=== PATIENT | female | born 1980 | race Caucasian/White ===

== ENCOUNTER 2017-08-21 08:14 | Emergency (ER) | payer OTHER ==
[2017-08-21 10:07] VITALS: BP 116/74
--- NOTE | 2017-08-21 10:16 | UC ---
Skin Complaint HPI - HPI Summary HPI Summary: Pt c/o "sores" on left upper arm/shoulder, upper back and neck, and chin. Also , c/o tender lymphandenopathy left side neck and supraclavicular - History of Current Complaint Chief Complaint: UCSkin Time Seen by Provider: 08/21/17 10:07 Stated Complaint: IMPEDIGO/RASH Hx Obtained From: Patient Hx Last Menstrual Period: DOES NOT HAVE REG PERIODS, HAS THE IMPLAMON ?: No Onset/Duration: Gradual Onset, Lasting Days, Still Present Skin Exposure Onset/Duration: Days Ago Timing: Constant Onset Severity: Mild Current Severity: Mild Character: Redness, Raised, Painful Aggravating Factor(s): Touch Alleviating Factor(s): Unknown Associated Signs & Symptoms: Positive: Tenderness - Allergy/Home Medications Allergies/Adverse Reactions: Allergies Allergy/AdvReac Type Severity Reaction Status Date / Time Penicillin V Allergy Intermediate Hives Verified 08/21/17 08:20 [From Penicillin VK Potassium] Review of Systems Constitutional: Negative Skin: Other - sores, Eyes: Negative ENT: Negative Respiratory: Negative Cardiovascular: Negative Gastrointestinal: Negative Genitourinary: Negative Motor: Negative Neurovascular: Negative Musculoskeletal: Negative Neurological: Negative Psychological: Negative Is Patient Immunocompromised?: No All Other Systems Reviewed And Are Negative: Yes PMH/Surg Hx/FS Hx/Imm Hx Previously Healthy: Yes - Surgical History Surgical History: Yes Surgery Procedure, Year, and Place: bilat knee surgery. pylonital cyst removal, wisdom teeth extracted. - Family History Known Family History: Positive: Cardiac Disease - Social History Occupation: Employed Full-time Lives: With Family Alcohol Use: Occasionally Substance Use Type: None Smoking Status (MU): Heavy Every Day Tobacco Smoker Type: Cigarettes Amount Used/How Often: 1 ppd Have You Smoked in the Last Year: Yes Household Exposure Type: Cigarettes Physical Exam Triage Information Reviewed: Yes Appearance: Well-Appearing Vital Signs: Initial Vital Signs Temp 98.9 F 08/21/17 08:20 Pulse 77 08/21/17 08:20 Resp 20 08/21/17 08:20 BP 120/73 08/21/17 08:20 Pulse Ox 100 08/21/17 08:20 Vital Signs Reviewed: Yes Eye Exam: Normal ENT Exam: Normal Dental Exam: Normal Neck: Positive: Tenderness @ - left supraclavicular, left cervical chain, Enlarged Nodes @ Respiratory Exam: Normal Cardiovascular Exam: Normal Abdominal Exam: Normal Musculoskeletal Exam: Normal Neurological Exam: Normal Psychological Exam: Normal Skin Exam: Other - small eraser size sores on chin, left upper shoulder/arm, upper back and left side of neck. Course/Dx - Course Course Of Treatment: I discussed wiht the patient the need to follow p with her PCP regarding the lymphadenopathy in 1 week. Pt verbalized understanding and agreed to plan of care. - Differential Diagnoses - Skin Complaint Differential Diagnoses: Cellulitis, Impetigo, MRSA - Diagnoses Provider Diagnoses: cellulitis. MRSA? Lymphadenopathy Discharge - Discharge Plan Condition: Stable Disposition: HOME Prescriptions: Mupirocin 2% OINT* [Bactroban 2 % Oint*] 1 applic TOPICAL Q12H #1 tube Sulfamethox/Trimethoprim DS* [Bactrim DS 800/160 TAB*] 1 tab PO Q12H #10 tab Patient Education Materials: Cellulitis (ED), Lymphadenopathy (ED) Referrals: Cynthia Shepherd MD [Primary Care Provider] - 1 Week
== END 2017-08-21 10:22 | disposition home or self-care (01) ==
LOC: UCCORT 08:14
DX: L03.211 Cellulitis of face (principal); L03.114 Cellulitis of left upper limb; L03.312 Cellulitis of back [any part except buttock and flank]; R59.0 Localized enlarged lymph nodes; Z88.0 Allergy status to penicillin; F17.210 Nicotine dependence, cigarettes, uncomplicated
CPT/HCPCS: 99212; G0463

== ENCOUNTER 2017-09-19 09:08 | Emergency (ER) | payer OTHER | END 2017-09-19 09:39 | disposition left against medical advice (07) | LOC: UCCORT 09:08 | DX: R60.9 Edema, unspecified (principal); Z53.21 Procedure and treatment not carried out due to patient leaving prior to being seen by health care provider ==

== ENCOUNTER 2018-10-08 17:39 | Emergency (ER) | payer OTHER ==
[2018-10-08 18:38] VITALS: BP 119/82
--- NOTE | 2018-10-08 19:48 | UC ---
Throat Pain/Nasal Demetrius HPI - HPI Summary HPI Summary: 38-year-old female presents with 2 day history of subjective fever, chills, sore throat, loss of voice. States she had intermittent nonproductive cough over the past week as well. Denies dysphagia, chest pain, shortness of breath, wheezing, abdominal pain, nausea, vomiting, or diarrhea. - History of Current Complaint Chief Complaint: UCRespiratory Stated Complaint: SORE THROAT, EAR CONCERN Time Seen by Provider: 10/08/18 19:17 Hx Obtained From: Patient Hx Last Menstrual Period: unknown Pain Intensity: 7 - Allergies/Home Medications Allergies/Adverse Reactions: Allergies Allergy/AdvReac Type Severity Reaction Status Date / Time Penicillins Allergy Hives Verified 10/08/18 18:33 Home Medications: Home Medications Ibuprofen TAB* [Advil TAB*] 800 mg PO Q6H PRN 10/08/18 [History Confirmed ] PMH/Surg Hx/FS Hx/Imm Hx Previously Healthy: Yes - Denies significant PMH - Surgical History Surgical History: Yes Surgery Procedure, Year, and Place: bilat knee surgery. pylonital cyst removal, wisdom teeth extracted. - Family History Known Family History: Positive: Cardiac Disease - Social History Occupation: Employed Full-time Lives: With Family Alcohol Use: Occasionally Substance Use Type: None Smoking Status (MU): Heavy Every Day Tobacco Smoker Type: Cigarettes Amount Used/How Often: 1 ppd Have You Smoked in the Last Year: Yes Household Exposure Type: Cigarettes Review of Systems All Other Systems Reviewed And Are Negative: Yes Constitutional: Positive: Fever, Chills Skin: Negative: Rash Eyes: Negative: Drainage, Eye Redness ENT: Positive: Sore Throat, Ear Ache. Negative: Nasal Discharge, Sinus Congestion, Sinus Pain/Tenderness Respiratory: Positive: Cough. Negative: Shortness Of Breath Cardiovascular: Negative: Palpitations, Chest Pain Gastrointestinal: Negative: Abdominal Pain, Vomiting, Diarrhea, Nausea Genitourinary: Positive: Negative Musculoskeletal: Positive: Negative Neurological: Positive: Negative Is Patient Immunocompromised?: No Physical Exam - Summary Physical Exam Summary: GENERAL APPEARANCE: Well developed, well nourished, alert and cooperative, and appears to be in no acute distress. EYES: Conjunctiva clear. No drainage. Vision is grossly intact. EARS: External auditory canals and tympanic membranes clear, hearing grossly intact. NOSE: Mild nasal congestion with mucosal erythema. No nasal discharge. THROAT: Pharyngeal erythema. Tonsils 2+ with erythema. Oral cavity normal. Teeth and gingiva in good general condition. NECK: Neck supple, non-tender without lymphadenopathy. CARDIAC: Normal S1 and S2. No S3, S4 or murmurs. Rhythm is regular. There is no peripheral edema, cyanosis or pallor. Extremities are warm and well perfused. Capillary refill is less than 2 seconds. LUNGS: Clear to auscultation and percussion without rales, rhonchi, wheezing or diminished breath sounds. ABDOMEN: Positive bowel sounds. Soft, nondistended, nontender. No guarding or rebound. No masses or hepatosplenomegally. MUSKULOSKELETAL: ROM intact to all extremities. No joint erythema or tenderness. Normal muscular development. Normal gait. SKIN: Skin normal color, texture and turgor with no lesions or eruptions. Triage Information Reviewed: Yes Vital Signs: Initial Vital Signs Temp 99.1 F 10/08/18 18:34 Pulse 74 10/08/18 18:34 Resp 16 10/08/18 18:34 BP 119/82 10/08/18 18:34 Pulse Ox 100 10/08/18 18:34 Vital Signs Reviewed: Yes Diagnostics - Laboratory Diagnostic Studies Completed/Ordered: Rapid strep negative. Throat Pain/Nasal Course/Dx - Course Course Of Treatment: 38-year-old female presents with 2 day history of subjective fever, chills, sore throat, loss of voice. States she had intermittent nonproductive cough over the past week as well. Denies dysphagia, chest pain, shortness of breath, wheezing, abdominal pain, nausea, vomiting, or diarrhea. Afebrile. Vital signs stable. Exam revealed mild nasal congestion without discharge, bilateral TMs are opaque with good cone of light, pharyngeal erythema, 2+ tonsils with erythema and otherwise unremarkable exam. Rapid strep was negative. Recommend symptomatic treatment for viral pharyngitis. She is to follow up with primary care provider in 7 days if symptoms persist. Warning symptoms were reviewed with patient. Verbalizes understanding and agrees with POC. - Differential Dx/Diagnosis Differential Diagnosis/HQI/PQRI: Otitis Media, Pharyngitis, Sinusitis, Tonsillitis Provider Diagnosis: Acute viral pharyngitis Discharge - Sign-Out/Discharge Documenting (check all that apply): Patient Departure All imaging exams completed and their final reports reviewed: No Studies - Discharge Plan Condition: Stable Disposition: HOME Patient Education Materials: Pharyngitis (ED) Forms: *Work Release Referrals: Josefina Ndiaye MD [Primary Care Provider] - 7 Days Additional Instructions: Your history and exam are consistent with a viral upper respiratory infection. Viral infections do not respond to antibiotics and are limited to the treatment of symptoms. Viral infections typically run their course in 7-10 days. Drink plenty of fluids to avoid dehydration especially if you are running any fever. Use a saline rinse kit such as Neti Pot or NeilMed at least twice a day to help thin secretions and promote drainage of the sinuses. Use over the counter fluticasone (Flonase) nasal spray 2 sprays each nostril once daily. Take over the counter acetaminophen (Tylenol) or ibuprofen (Advil, Motrin) according to directions as needed for pain or fever. Use salt water gargles several times a day if you have a sore throat. You may also use Chloraseptic spray or Cepacol lonzenges according to directions which contain a numbing medication and can provide some temporary relief from your sore throat. Follow up with your primary care provider in 7 days if symptoms persist. Seek immediate medical attention in the emergency room if you have fever greater than 100.5 F despite taking acetaminophen or ibuprofen, have chest pain , difficulty breathing, are unable to swallow, or have any worsening of symptoms. - Billing Disposition and Condition Condition: STABLE Disposition: Home
== END 2018-10-08 20:00 | disposition home or self-care (01) ==
LOC: UCCORT 17:39
DX: J02.8 Acute pharyngitis due to other specified organisms (principal); F17.210 Nicotine dependence, cigarettes, uncomplicated; Z88.0 Allergy status to penicillin
CPT/HCPCS: 87651; 99211; G0463